=== PATIENT | male | born 1945 | race Caucasian/White ===

== ENCOUNTER 2020-03-31 00:20 | Outpatient (CLI) | payer MEDICARE, BC, SELFPAY ==
[2020-03-31 16:41] LABS: SARS-CoV-2 RNA PCR Negative
== END 2020-03-31 00:21 | disposition home or self-care (01) ==
LOC: ANHCOVIDDT 00:20
PROVIDERS: PCP Family Medicine; Visit Provider Internal Medicine Gastroenterology
DX: Z01.812 Encounter for preprocedural laboratory examination (principal); Z20.828 Contact with and (suspected) exposure to other viral communicable diseases
CPT/HCPCS: 87635; C9803; U0003

== ENCOUNTER 2020-04-02 02:31 | Day surgery (SDC) | payer MEDICARE, BC, SELFPAY ==
[2020-03-25 12:43] VITALS: BMI 26.4
[2020-04-02 08:46] VITALS: BP 123/65; PULSE 60; RESP 16; TEMP 37.2; O2SAT 92; BMI 26.1
[2020-04-02] MEDS: LACTATED RINGERS 1,000 ML 150 ML IV CONT (08:57)
--- NOTE | 2020-04-02 09:07 | P.PNAN_ITS ---
Anes - Initial Pre Proc Eval Procedure: Operation Date: 04/02/20 09:30 Proposed Procedures p Screening Colonoscopy - Ney Hernandez MD Date/Time: 04/02/20 09:07 Surgeon: Ney Hernandez MD Pre Op Diagnosis: Hx Colon Polyps Patient Data Age: 74 Gender: M Height: 6 ft Weight: 87.3 kg Last Vital Signs Temp 98.9 F 04/02/20 08:46 Pulse 60 04/02/20 08:46 Resp 16 04/02/20 08:46 BP 123/65 04/02/20 08:46 Pulse Ox 92 04/02/20 08:46 Allergies Allergy/AdvReac Type Severity Reaction Status Date / Time No Known Allergies Allergy Unknown Unverified 04/02/20 08:45 Home Medications Medication Instructions Recorded Confirmed Type Iron 65 mg PO DAILY 08/22/19 03/25/20 History atorvastatin 10 mg PO DAILY 08/22/19 03/25/20 History benazepril 10 mg tablet 10 mg PO DAILY #90 tablet 09/19/19 03/25/20 Rx Vit D3 5,000 units BYMOUTH DAILY 03/25/20 03/25/20 History allopurinol 100 mg PO DAILY 03/25/20 03/25/20 History rosuvastatin 20 mg PO DAILY 03/25/20 03/25/20 History Patient hx anesthesia problems: none Family hx anesthesia problems: none [facility] Past Medical History Medical History (Updated 04/02/20 @ 09:07 by Jr Caro MD) Anemia Hyperlipidemia Hypertension Social History Social History Smoking status: Never smoker Alcohol intake: current Anes - Eval Final PreProcedure Day of Procedure 04/02/20 09:07 Patient weight: normal Heart: regular rate and rhythm Lungs: clear to auscultation Airway: Mallampati scale class II Neurological: alert and oriented Last oral intake: >/= 8 hours ASA classification: III Emergent: no Anesthetic plan: proceed Anesthesia type and monitoring: general GIVS and standard monitoring Informed Consent: The patient's anesthetic plan and its attendant risks and benefits were discussed with the patient/family/POA. Questions were solicited and answers provided to the satisfaction of the patient/family/POA.
--- NOTE | 2020-04-02 09:19 | PM.HPGS ---
History of Present Illness History of Present Illness Consent: Risks, benefits, and alternatives have been discussed and questions answered. Patient agrees to proceed with procedure. Chief complaint: Hx Colon Polyps Narrative: Elton Spivey is a 74 year old male with a history of polyps. He had 4 polyps removed about 3 years ago [facility] Past Medical History Medical History Anemia Hyperlipidemia Hypertension Family History Family History Mother Cerebrovascular accident Family history of diabetes mellitus in first degree relative Father Malignant neoplasm of prostate Social History Social History Smoking status: Never smoker Alcohol intake: current Meds Home Medications and Allergies Home Medications Medication Instructions Recorded Confirmed Type Iron 65 mg PO DAILY 08/22/19 03/25/20 History atorvastatin 10 mg PO DAILY 08/22/19 03/25/20 History benazepril 10 mg tablet 10 mg PO DAILY #90 tablet 09/19/19 03/25/20 Rx Vit D3 5,000 units BYMOUTH DAILY 03/25/20 03/25/20 History allopurinol 100 mg PO DAILY 03/25/20 03/25/20 History rosuvastatin 20 mg PO DAILY 03/25/20 03/25/20 History Allergies Allergy/AdvReac Type Severity Reaction Status Date / Time No Known Allergies Allergy Unknown Unverified 04/02/20 08:45 Vital Signs Vital Signs - 24 hr 04/02/20 08:46 Temperature 37.2 C Pulse Rate 60 Respiratory Rate 16 Blood Pressure 123/65 Pulse Oximetry 92 Exam Resp: Auscultation: clear to auscultation bilaterally Cardio: Rate: regular rate Rhythm: regular rhythm GI: GI Palp: Yes Soft to palpation and No Tenderness to palpation present (GI) Assessment and Plan Assessment and plan (1) Personal history of colonic polyps: Code(s): Z86.010 - Personal history of colonic polyps Status: Acute Assessment and Plan: Colonoscopy with possible biopsy or polypectomy or cautery or injection of substances.
[2020-04-02 09:48] VITALS: BP 96/55; PULSE 60; RESP 20; O2SAT 97
[2020-04-02 09:58] VITALS: BP 108/61; PULSE 54; RESP 22; O2SAT 97
[2020-04-02 10:08] VITALS: BP 107/64; PULSE 58; RESP 20; O2SAT 98
== END 2020-04-02 10:29 | disposition home or self-care (01) ==
PROVIDERS: PCP Family Medicine; Visit Provider Internal Medicine Gastroenterology
PROC: 0DJD8ZZ Inspection of Lower Intestinal Tract, Via Natural or Artificial Opening Endoscopic (ICD-10-PCS; CPT 45378; principal; 2020-04-02 09:30)
DX: Z12.11 Encounter for screening for malignant neoplasm of colon (principal); K57.30 Diverticulosis of large intestine without perforation or abscess without bleeding; Z86.010 Personal history of colon polyps; I10 Essential (primary) hypertension; E78.5 Hyperlipidemia, unspecified; D64.9 Anemia, unspecified
CPT/HCPCS: G0105; J2704; J7120

== ENCOUNTER 2024-10-01 09:46 | Outpatient (CLI) | payer MEDICARE, BC, SELFPAY ==
[2024-10-01 10:06] LABS: Basophils Percent Auto 0.4 % (0.2-1.2); Eosinophils Absolute Auto 0.1 K/mm3 (0-0.3); Eosinophils Percent Auto 0.9 % (0-4.4); Hematocrit 44.4 % (42.0-52.0); Hemoglobin 14.4 g/dL (14.0-18.0); Immature Granulocyte Absolute 0.08 K/mm3 (0.00-0.031); Immature Granulocyte Percent A 0.8 % (0-0.5); Immature Platelet Fraction Pct 7.3 % (0.9-11.2); Lymphocytes Absolute Auto 1.68 K/mm3 (0.9-3.2); Lymphocytes Percent Auto 17.4 % (18.3-44.2); Mean Corpuscular HGB Conc 32.4 g/dl (32-36); Mean Corpuscular Hemoglobin 31.3 pg (26-34); Mean Corpuscular Volume 96.5 fl (80-100); Monocytes Absolute Auto 0.7 K/mm3 (0.1-0.6); Monocytes Percent Auto 6.7 % (2.6-8.5); Neutrophils Absolute Auto 7.1 K/mm3 (1.3-6.7); Neutrophils Percent Auto 73.8 % (45.5-73.1); Platelet Count Result 143 k/mm3 (150-375); Red Cell Distribution Width 12.8 % (11.5-14.5); White Blood Count 9.7 K/mm3 (4.5-10.0)
[2024-10-01 12:02] LABS: Alanine Aminotransferase 19 U/L (6-50); Albumin Level 4.4 g/dL (3.5-5.1); Alkaline Phosphatase 60 U/L (38-126); Anion Gap 7 mmol/L (4-12); Aspartate Amino Transferase 20 U/L (17-59); Bilirubin,Total 0.8 mg/dL (0.2-1.3); Blood Urea Nitrogen 18 mg/dL (9-20); Calcium 9.7 mg/dL (8.4-10.2); Carbon Dioxide 27 mmol/L (22-30); Chloride 108 mmol/L (98-107); Estimated Glomerular Filt Rate 53; Glucose 104 mg/dL (65-110); Potassium 4.2 mmol/L (3.4-5.0); Sodium 142 mmol/L (137-145)
[2024-10-01 13:12] LABS: Folic Acid 8.1 ng/mL (2.76->20)
== END 2024-10-01 09:47 | disposition home or self-care (01) ==
LOC: ANHLAB 09:46
PROVIDERS: PCP Family Medicine; Visit Provider Internal Medicine Hematology & Oncology
DX: D69.6 Thrombocytopenia, unspecified (principal)
CPT/HCPCS: 36415; 80053; 82607; 82746; 85025; 85055

== ENCOUNTER 2025-09-05 15:31 | Outpatient (CLI) | payer MEDICARE, BC, SELFPAY ==
--- NOTE | ~2025-09-05 | XR_ITS ---
EXAMINATION: XR shoulder LT min 2V, 09/05/2025 15:42 DOOR CLOSER HISTORY: M25.512 - Pain in left shoulder COMPARISON: No comparisons available. Findings: No acute fracture or malalignment. Moderate degenerative changes Soft tissues unremarkable. Impression: No acute fracture or malalignment. Reviewed, dictated and finalized at location P. CLOSER Impression: No acute fracture or malalignment.
--- OUTSIDE RECORDS SUMMARY | 2025-09-05 20:58 | XMS_ITS | Encounter Summary ---
Author Organization [facility] Health Address [address] [place] [address] Care Team Providers Care Diesel Dinkey Engineer Name Role Phone Unavailable Primary Care Provider Unavailabl e Prior Encounters Date Type Department Care Team Description 04/18/2025 2:00 PM CDT Office Visit [facility] [address] [place] [address] Encounter for dental examination and cleaning without abnormal findings (Primary Dx) 04/18/2025 2:00 PM CDT Office Visit [facility] [address] [place] [phone] Hazel Hernandez DMD Encounter for dental examination and cleaning without abnormal findings (Primary Dx) 10/04/2024 Travel 10/04/2024 1:00 PM EVP Office Visit [facility] [address] [place] [phone] Hazel Hernandez DMD Encounter for dental examination and cleaning without abnormal findings (Primary Dx) 03/20/2024 Travel 03/20/2024 10:30 AM CDT Office Visit [facility] [address] [place] [phone] Hazel Hernandez DMD Encounter for dental examination and cleaning without abnormal findings (Primary Dx) 12/30/2022 Travel 12/30/2022 1:30 PM EVP Office Visit [facility] [address] [place] [phone] Brian Joiner, LESLYE 05/07/2022 9:00 AM CDT Office Visit [facility] [address] [place] [address] Cipriano Kim DDS 05/07/2022 9:00 AM CDT Office Visit [facility] [address] [place] [address] Kristy Back, [facility] 11/06/2021 Travel 11/06/2021 9:00 AM EVP Office Visit [facility] [address] [place] [address] Winnie Martinez, DMD 11/06/2021 9:30 AM EVP Office Visit [facility] [address] [place] [address] Kristy Back, [facility] 04/24/2021 Travel 04/24/2021 10:00 AM CDT Office Visit [facility] [address] [place] [address] Kristy Back, [facility] 04/24/2021 10:00 AM CDT Office Visit [facility] [address] [place] [address] Winnie Martinez, DMD 11/19/2019 Converted CPS Chart Documents [facility] [address] [place] [address] <No scans attached> 11/19/2019 Converted 13x Documents [facility] [address] [place] [address] <No scans attached> Last Filed Vital Signs Vital Sign Reading Time Taken Comments Blood Pressure 119/70 05/07/2022 9:07 AM CDT Pulse 63 05/07/2022 9:07 AM CDT Temperature 35.8 C (96.5 F) 04/24/2021 9:55 AM CDT Respiratory Rate - - Oxygen Saturation - - Inhaled Oxygen Concentration - - Weight - - Height - - Body Mass Index - - Plan of Treatment Upcoming Encounters Date Type Department Care Team (Late st Contact Info) Description 11/14/2025 1:45 PM EVP Office Visit [facility] [address] [place] [phone] Hazel Hernandez, TEDDY [address] [place] [address] Procedures Procedure Name Priority Date/Time Associated Diagnosis Comments PROPHYLAXIS - ADULT Routine 04/18/2025 2 :00 PM CDT Encounter for dental examination and cleaning without abnormal findings BITEWINGS - FOUR RADIOGRAPHIC IMAGES Routine 04/18/2025 2:00 PM CDT PERIODIC ORAL EVALUATION - ESTABLISHED PATIENT Routine 04/18/2025 2:00 PM CDT Encounter for dental examination and cleaning without abnormal findings TOPICAL APPLICATION OF FLUORIDE VARNISH Routine 10/04/2024 1:00 PM EVP PERIODIC ORAL EVALUATION - ESTABLISHED PATIENT Routine 10/04/2024 1:00 PM EVP Encounter for dental examination and cleaning without abnormal findings PROPHYLAXIS - ADULT Routine 10/04/2024 1 :00 PM EVP Encounter for dental examination and cleaning without abnormal findings PLAN VISIT FEE Routine 03/20/2024 10:30 AM CDT TOPICAL APPLICATION OF FLUORIDE VARNISH Routine 03/20/2024 10:30 AM CDT BITEWINGS - FOUR RADIOGRAPHIC IMAGES Routine 03/20/2024 10:30 AM CDT PROPHYLAXIS - ADULT Routine 03/20/2024 1 0:30 AM CDT Encounter for dental examination and cleaning without abnormal findings ORAL HYGIENE INSTRUCTIONS Routine 2023 10:30 AM CDT PERIODIC ORAL EVALUATION - ESTABLISHED PATIENT Routine 03/20/2024 10:30 AM CDT Encounter for dental examination and cleaning without abnormal findings ORAL HYGIENE INSTRUCTIONS Routine 2022 1:30 PM EVP PROPHYLAXIS - ADULT Routine 12/30/2022 1 :30 PM EVP BITEWINGS - FOUR RADIOGRAPHIC IMAGES Routine 12/30/2022 1:30 PM EVP COMPREHENSIVE ORAL EVALUATION - NEW OR ESTABLISHED PATIENT Routine 12/30/2022 1:30 PM EVP ORAL HYGIENE INSTRUCTIONS Routine 2021 9:00 AM CDT TOPICAL APPLICATION OF FLUORIDE VARNISH Routine 05/07/2022 9:00 AM CDT PROPHYLAXIS - ADULT Routine 05/07/2022 9 :00 AM CDT PERIODIC ORAL EVALUATION - ESTABLISHED PATIENT Routine 05/07/2022 9:00 AM CDT PROPHYLAXIS - ADULT Routine 11/06/2021 9 :30 AM EVP BITEWINGS - FOUR RADIOGRAPHIC IMAGES Routine 11/06/2021 9:00 AM EVP ADDITIONAL X-RAY Routine 11/06/2021 9:00 AM EVP ADDITIONAL X-RAY Routine 11/06/2021 9:00 AM EVP ADDITIONAL X-RAY Routine 11/06/2021 9:00 AM EVP ADDITIONAL X-RAY Routine 11/06/2021 9:00 AM EVP ADDITIONAL X-RAY Routine 11/06/2021 9:00 AM EVP SINGLE X-RAY Routine 11/06/2021 9:00 AM EVP PERIODIC ORAL EVALUATION - ESTABLISHED PATIENT Routine 11/06/2021 9:00 AM EVP OFFICE VISIT FOR OBSERVATION (DURING REGULARLY SCHEDULED HOURS) - NO OTHER SERVICES PERFORMED Routine 04/24/2021 10:00 AM CDT PERIODIC ORAL EVALUATION - ESTABLISHED PATIENT Routine 04/24/2021 10:00 AM CDT ORAL HYGIENE INSTRUCTIONS Routine 2020 10:00 AM CDT TOPICAL APPLICATION OF FLUORIDE VARNISH Routine 04/24/2021 10:00 AM CDT PROPHYLAXIS - ADULT Routine 04/24/2021 1 0:00 AM CDT 30 RETAINER CROWN - PFM - POST Routine 10/16/2020 2:00 AM EVP 14 MOL AMALGAM 3 SURFACE Routine 020 2:00 AM EVP 11 DFL AMALGAM 3 SURFACE Routine 020 2:00 AM EVP 15 LO AMALGAM 2 SURFACE Routine 10/16/20 20 2:00 AM EVP 12 DO AMALGAM 2 SURFACE Routine 10/16/20 20 2:00 AM EVP 2 LO AMALGAM 2 SURFACE Routine 0 2:00 AM EVP 18 O AMALGAM 1 SURFACE Routine 0 2:00 AM EVP 19 ENDODONTIC THERAPY, PREMOLAR TOOTH (EXCLUDING FINAL HOAHAOISM) Routine 10/16/2020 2:00 AM EVP 4 ENDODONTIC THERAPY, PREMOLAR TOOTH (EXCLUDING FINAL HOAHAOISM) Routine 10/16/2020 2:00 AM EVP 31 CROWN PFM POST Routine 10/16/2020 2:0 0 AM EVP 29 CROWN PFM POST Routine 10/16/2020 2:0 0 AM EVP 19 CROWN PFM POST Routine 10/16/2020 2:0 0 AM EVP 4 CROWN PFM POST Routine 10/16/2020 2:00 AM EVP 20 CROWN PFM POST Routine 10/16/2020 2:0 0 AM EVP 13 CROWN PFM POST Routine 10/16/2020 2:0 0 AM EVP 5 CROWN PFM POST Routine 10/16/2020 2:00 AM EVP 32 EXTRACTION, ERUPTED TOOTH OR EXPOSED ROOT (ELEVATION AND/OR FORCEPS REMOVAL) Routine 10/16/2020 2:00 AM EVP 30 EXTRACTION, ERUPTED TOOTH OR EXPOSED ROOT (ELEVATION AND/OR FORCEPS REMOVAL) Routine 10/16/2020 2:00 AM EVP 17 EXTRACTION, ERUPTED TOOTH OR EXPOSED ROOT (ELEVATION AND/OR FORCEPS REMOVAL) Routine 10/16/2020 2:00 AM EVP 1 EXTRACTION, ERUPTED TOOTH OR EXPOSED ROOT (ELEVATION AND/OR FORCEPS REMOVAL) Routine 10/16/2020 2:00 AM EVP ORAL HYGIENE INSTRUCTIONS Routine 2019 2:00 AM EVP TOPICAL APPLICATION OF FLUORIDE VARNISH Routine 10/16/2020 2:00 AM EVP PROPHYLAXIS - ADULT Routine 10/16/2020 2 :00 AM EVP COMPREHENSIVE ORAL EVALUATION - NEW OR ESTABLISHED PATIENT Routine 10/16/2020 2:00 AM EVP PANORAMIC RADIOGRAPHIC IMAGE Routine 10/16/2020 2:00 AM EVP INTRAORAL - COMPREHENSIVE SERIES OF RADIOGRAPHIC IMAGES Routine 10/16/2020 2:00 AM EVP INTRAORAL PHOTO Routine 10/16/2020 2:00 AM EVP INTRAORAL PHOTO Routine 10/16/2020 2:00 AM EVP INTRAORAL PHOTO Routine 10/16/2020 2:00 AM EVP INTRAORAL PHOTO Routine 10/16/2020 2:00 AM EVP 3 MO COMPOSITE FILLING Routine 0 2:00 AM EVP 11 ML COMPOSITE FILLING Routine 10/16/20 20 2:00 AM EVP 8 ML COMPOSITE FILLING Routine 0 2:00 AM EVP 9 L COMPOSITE FILLING Routine 10/16/2020 2:00 AM EVP Visit Diagnoses Diagnosis Start Date Encounter for dental examination and cleaning without abnormal findings 03/20/2024 Encounter for dental examination and cleaning without abnormal findings 10/04/2024 Encounter for dental examination and cleaning without abnormal findings 04/18/2025 Encounter for dental examination and cleaning without abnormal findings 04/18/2025 Insurance [facility] [place] [address]
--- OUTSIDE RECORDS SUMMARY | 2025-09-05 20:58 | XMS_ITS | Clinical Summary ---
Author Organization [facility] Health Address [address] [place] [address] Care Team Providers Care Fruit Harvest Machine Operator Name Role Phone Unavailable Primary Care Provider Unavailabl e Allergies No known active allergies Medications cyanocobalamin (Vitamin B-12) 500 mcg tablet Activ e allopurinoL (ZYLOPRIM) 100 mg tablet Active benazepriL (LOTENSIN) 10 mg tablet Active cholecalciferol, VITAMIN D3, 5,000 Units tablet Active rosuvastatin (CRESTOR) 20 mg tablet Active cholecalciferol, VITAMIN D3, 5,000 Units tablet Active ferrous sulfate 325 mg (65 mg iron) tablet Take 325 mg by mouth 1 (one) time each day. Active benazepriL (LOTENSIN) 10 mg tablet Take 10 mg by mouth 1 (one) time each day. Active rosuvastatin (CRESTOR) 20 mg tablet Take 20 mg by mouth. 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 [address] [place] [phone] Callumelvin Chapman Hazel, DMD [address] [place] [address] Health Maintenance Due Date Last Done Comments Dental X-Ray: Full Mouth 03/22/2024 03/21/2021, 09/30 Dental X-Ray: Panoramic 03/22/2024 03/21/2021, 10/16 Dental Oral Exam 10/19/2025 04/18/2025, 02/2024, 03/20/2024, Additional history exists Dental Prophylaxis 10/19/2025 04/18/2025, 1 12/05/2023, 03/20/2024, Additional history exists Dental X-Ray: Bitewings 10/19/2025 04/18/2025 Procedures Procedure Name Priority Date/Time Associated Diagnosis Comments PROPHYLAXIS - ADULT Routine 04/18/2025 2 :00 PM CDT Encounter for dental examination and cleaning without abnormal findings PERIODIC ORAL EVALUATION - ESTABLISHED PATIENT Routine 04/18/2025 2:00 PM CDT Encounter for dental examination and cleaning without abnormal findings PANORAMIC RADIOGRAPHIC IMAGE Routine 10/16/2020 2:00 AM IT TECHNICAL SPECIALIST INTRAORAL - COMPREHENSIVE SERIES OF RADIOGRAPHIC IMAGES Routine 10/16/2020 2:00 AM IT TECHNICAL SPECIALIST from Last 3 Months or Most Recently Relevant to Health Maintenance Insurance [place] [address]
--- OUTSIDE RECORDS SUMMARY | 2025-09-05 20:58 | XMS_ITS | Clinical Summary ---
Author Organization [facility] Address [address] [address] Care Team Providers Care Home Paraprofessional Name Role Phone Cj Acosta MD Primary Care Provider [phone] Allergies No known active allergies Medications ferrous sulfate 325 mg (65 mg iron) tablet Take 325 mg by mouth daily. Active benazepril (LOTENSIN) 10 mg tablet Take 10 mg by mouth daily. Active rosuvastatin (CRESTOR) 20 mg tablet Take 20 mg by mouth daily at bedtime. Active cyanocobalamin (B-12 DOTS) 500 mcg tablet Active cholecalciferol, vitamin D3, (D-3-5 ORAL) Active allopurinoL (ZYLOPRIM) 100 mg tabletIndication s:Thrombocytopen ia, unspecified Take 1 Tablet (100 mg) by mouth daily. 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 Encounters Date Type Department Care Team Description 08/28/2025 External Device Data ST[facility] ABSTRACTION Provider, Abstract 08/27/2025 External Device Data [facility] ABSTRACTION Provider, Abstract 08/21/2025 External Device Data [facility] ABSTRACTION Provider, Abstract 08/20/2025 External Device Data [facility] ABSTRACTION Provider, Abstract 07/16/2025 External Device Data [facility] ABSTRACTION Provider, Abstract 07/16/2025 External Device Data ST[facility] ABSTRACTION Provider, Abstract 06/18/2025 External Device Data ST[facility] ABSTRACTION Provider, Abstract 06/18/2025 External Device Data STL ABSTRACTION Provider, Abstract 06/05/2025 External Device Data STL ABSTRACTION Provider, Abstract from Last 3 Months Family History Medical History Relation Name Comments Cancer Father Diabetes Mother Relation Name Status Comments Brother Alive Father Mother Social History Tobacco Use Types Packs/Day Years Used Date Smoking Tobacco: Never Smokeless Tobacco: Never Tobacco Cessation:Counseling Given: Not Answered Alcohol Use Standard Drinks/Week Comments Never 0 (1 standard drink = 0.6 oz pur e alcohol) Sex and Gender Information Value Date Recorded Sex Assigned at Not on file Legal Sex Male 4:25 PM CDT Gender Identity Not on file Sexual Orientation Not on file Last Filed Vital Signs Vital Sign Reading Time Taken Comments Blood Pressure 127/68 10/04/2024 11:11 AM HEATING TECHNICIAN Pulse 64 10/04/2024 11:11 AM HEATING TECHNICIAN Temperature 36.5 C (97.7 F) 10/04/2024 11:11 AM HEATING TECHNICIAN Respiratory Rate 16 10/04/2024 11:1 1 AM HEATING TECHNICIAN Oxygen Saturation 96% 10/04/2024 11: 11 AM HEATING TECHNICIAN Inhaled Oxygen Concentration - - Weight 83.8 kg (184 lb 12.8 oz) 024 11:11 AM HEATING TECHNICIAN Height 182.9 cm (6') 10/13/2021 9:50 AM HEATING TECHNICIAN Body Mass Index 25.06 10/13/2021 9:50 AM HEATING TECHNICIAN Plan of Treatment Upcoming Encounters Date Type Department Care Team (Late st Contact Info) Description 10/04/2025 8:30 AM HEATING TECHNICIAN Office Visit [facility] Oncology and Hematology - [place] [address] [facility] [address] [place] [address] Scott Harmon MD [address] [facility] [address] [place] [address] Health Maintenance Due Date Last Done Comments DTAP/TDAP/TD VACCINES (1 - Tdap) 1965 PNEUMOCOCCAL VACCINE 50+ YEA RS (1 of 1 - PCV) 1996 ZOSTER VACCINE (1 of 2) 1996 RSV VACCINE (60+ or ) (1 - 1-dose 75+ series) 2021 INFLUENZA VACCINE (#1) 2025 COLORECTAL SCREENING Discontinued 04/02/2020, 03/09/20 17 Colorectal Cancer Screening Discontinued FIT-DNA Q 3 years Discontinued FIT/FOBT Q 1 year Discontinued Flex Sig/CT Colonography Q [address] [place] [address] MEDICARE PART A AND B [facility] Care Teams Home Paraprofessional Relationship Specialty Start Date End Date Cj Acosta MD [address] [place] [address] PCP - General Family Practice 07/20/19
== END 2025-09-05 15:32 | disposition home or self-care (01) ==
PROVIDERS: PCP Family Medicine; Visit Provider Family Medicine
DX: M25.512 Pain in left shoulder (principal)
CPT/HCPCS: 73030

== ENCOUNTER 2025-10-04 08:08 | Outpatient (CLI) | payer MEDICARE, BC, SELFPAY ==
[2025-10-04 08:28] LABS: Hematocrit 44.4 % (42.0-52.0); Hemoglobin 14.7 g/dL (14.0-18.0); Immature Granulocyte Percent A 1.6 % (0-0.5); Lymphocytes Absolute Auto 1.36 K/mm3 (0.9-3.2); Mean Corpuscular HGB Conc 33.1 g/dl (32-36); Mean Corpuscular Hemoglobin 31.3 pg (26-34); Mean Corpuscular Volume 94.5 fl (80-100); Nucleated Red Blood Cells Absolute Auto 0.000 K/mm3 (0.0-0.012); Nucleated Red Blood Cells Perc 0.0 % (0.0-0.2); Platelet Count Result 147 k/mm3 (150-375); Red Blood Count 4.70 M/mm3 (4.6-6.20); White Blood Count 7.6 K/mm3 (4.5-10.0)
[2025-10-04 08:32] LABS: Blood Urea Nitrogen 19 mg/dL (8-26); Carbon Dioxide 23 mmol/L (22-30); Chloride 106 mmol/L (98-109); Estimated Glomerular Filt Rate 45; Glucose 118 mg/dL (70-105); Ionized Calcium (POC) 1.23 mmol/L (1.11-1.31); Potassium 4.2 mmol/L (3.5-4.9); Sodium 141 mmol/L (138-146)
[2025-10-04 11:19] LABS: Alanine Aminotransferase 24 U/L (6-50); Albumin Level 4.3 g/dL (3.5-5.1); Alkaline Phosphatase 60 U/L (38-126); Anion Gap 6 mmol/L (4-12); Aspartate Amino Transferase 23 U/L (17-59); Bilirubin,Total 0.9 mg/dL (0.2-1.3); Blood Urea Nitrogen 18 mg/dL (9-20); Calcium 9.8 mg/dL (8.4-10.2); Carbon Dioxide 25 mmol/L (22-30); Chloride 107 mmol/L (98-107); Estimated Glomerular Filt Rate 49; Glucose 118 mg/dL (65-110); Potassium 4.3 mmol/L (3.4-5.0); Sodium 138 mmol/L (137-145); Total Protein 7.4 g/dL (6.3-8.2)
== END 2025-10-04 08:09 | disposition home or self-care (01) ==
LOC: ANHLAB 08:09
PROVIDERS: PCP Family Medicine; Visit Provider Internal Medicine Hematology & Oncology
DX: D69.6 Thrombocytopenia, unspecified (principal)
CPT/HCPCS: 36415; 80047; 80053; 85025